=== PATIENT | male | born 1990 | race Caucasian/White ===

== ENCOUNTER 2017-09-09 12:15 | Emergency (ER) | payer OTHER ==
[~2017-09-09] VITALS: Ht 182.9 cm; Wt 94.8 kg
[2017-09-09 12:43] LABS: HEMOGLOBIN 17.8 G/DL (12.5-16.6); MCH 31.9 PG (29.0-34.0); MCHC 35.6 G/DL (30.0-36.0); MCV 89.6 FL (86-99); PLATELET COUNT 310 K/uL (156-360); RBC DIS.WIDTH-CV 11.5 % (11.8-14.6); RBC DIS.WIDTH-SD 37.4 % (39-53); RED BLOOD COUNT 5.58 M/uL (4.00-5.50); WHITE BLOOD COUNT 9.1 K/uL (4.1-10.2)
[2017-09-09 12:53] LABS: CHLORIDE 106 mEq/L (99-109); POTASSIUM 4.2 mEq/L (3.7-5.4); SODIUM 142 mEq/L (136-147)
[2017-09-09 12:55] LABS: GLUCOSE 147 mg/dL (70-99)
[2017-09-09 12:59] LABS: CREATININE 1.1 mg/dL (0.6-1.3)
[2017-09-09 13:00] LABS: UREA NITROGEN (BUN) 14 mg/dL (9-23)
[2017-09-09 13:06] LABS: GFR ESTIMATE (CALCULATED) > 59 mL/min/ (58.99-99999)
[2017-09-09] MEDS ORDERED: VALIUM5 MG PO (14:09)
[2017-09-09] MEDS ORDERED: FIORICET,ESG1 TABLET PO (14:09)
[2017-09-09 14:20] VITALS: BP 132/78
== END 2017-09-09 14:21 | disposition home or self-care (01) ==
LOC: EME 12:15
DX: R51 Headache (principal); S16.1XXA Strain of muscle, fascia and tendon at neck level, initial encounter; F17.200 Nicotine dependence, unspecified, uncomplicated
CPT/HCPCS: 70450; 80048; 85027; 99281; 99284; J1885